=== PATIENT | female | born 1985 | race Caucasian/White ===

== ENCOUNTER → 2016-06-11 | Outpatient (CLI) | payer OTHER ==
[~2016-06-11] MED LIST: ACHD5005 PO; AGM875T PO; AMOX-355 PO; AMOX500C2 PO; CEPH500C PO; CYCL10TA9 PO; GNT.3OP5 OP; HYDR-3583 PO; HYDR1CAP2 PO; HYDR1TAB PO; IBP600T1 PO; NAPR-243 PO; PREN1TAB19 PO
--- NOTE | 2016-06-11 13:14 | Diagnostic Imaging Report ---
PROCEDURE: US OB SINGLE FETUS <14 WKS. TECHNIQUE: Multiple real-time grayscale images were obtained over the gravid uterus in various projections. INDICATION: OB ultrasound for dates. FINDINGS: There is a single live intrauterine fetus present. Emlyn-rump length is 5.2 cm consistent with 12 week 0 day gestation. heart rate of 160 beats per minute. Placenta is developing fundal and posterior. The left ovary measures 3.7 x 3.5 x 1.5 cm and appears normal. Right ovary is not demonstrated. There is no free fluid. IMPRESSION: 12 week 0 day live intrauterine with a sonographic EDC of 12/24/2016. Dictated by: Dictated on workstation # [id number]
== END ==
LOC: RAD 11:54
PROVIDERS: ATTEND Family Medicine
DX: Z34.80 Encounter for supervision of other normal pregnancy, unspecified trimester (principal); Z3A.12 12 weeks gestation of pregnancy
CPT/HCPCS: 76801

== ENCOUNTER 2016-07-03 19:07 | Emergency (ER) | payer SELFPAY ==
[~2016-07-03] VITALS: Ht 170.2 cm; Wt 77.1 kg
--- NOTE | 2016-07-03 19:20 | ED Abdominal Pain ---
General Stated Complaint: ABD PAIN AND NAUSEA - 15WKS Source of Information: Patient Exam Limitations: No Limitations History of Present Illness Time Seen By Provider: 19:19 Initial Comments To ER with right sided upper abdominal pain that has been intermittent x2 weeks and seems to be worsened by some foods. She is about 15 weeks gestation. States she does not have a family physician or an warehouse worker yet but she would like to see Dr. MONTANO. She believes this may be her gallbladder. She does have associated nausea and chills but no measured fevers or bowel changes. Timing/Duration: 1-2 Days Severity/Quality: Moderate Location: RUQ Radiation: No Radiation Activities at Onset: None Associated Symptoms: Fever/Chills, Nausea/Vomiting Allergies and Home Medications Allergies Coded Allergies: NKANo Known Allergies (Verified Allergy, Unknown, 11/02/05) Home Medications Ibuprofen 600 Mg Tab, 600 MG PO Q6H PRN for PAIN, #90 Ref 1 Prescribed by: MILA NEGRETE on 02/21/13 1424 Vit/Fe Fumarate/Fa 1 Each Tablet, 1 EACH PO DAILY, (Reported) Review of Systems Constitutional: see HPI, chills EENTM: No Symptoms Reported Respiratory: No Symptoms Reported Cardiovascular: See HPI Gastrointestinal: See HPI, Abdominal Pain, Denies Constipated, Denies Diarrhea , Nausea, Denies Vomiting Genitourinary: No Symptoms Reported Musculoskeletal: no symptoms reported Skin: no symptoms reported Psychiatric/Neurological: No Symptoms Reported Endocrine: No Symptoms Reported Past Qjryjjj-Ihbjmy-Clkira Hx Patient Social History Recent Foreign Travel: No Contact w/Someone Who Travel: No Immunizations Up To Date Tetanus Booster (TDap): Less than 5yrs Date of Influenza Vaccine: Nov 20, 2012 Surgeries HX Surgeries: No Respiratory Hx Respiratory Disorders: No Cardiovascular Hx Cardiac Disorders: No Neurological Hx Neurological Disorders: No Reproductive System Hx Reproductive Disorders: No Sexually Transmitted Disease: No HIV/AIDS: No Female Reproductive Disorders: Denies Genitourinary Hx Genitourinary Disorders: No Gastrointestinal Hx Gastrointestinal Disorders: No Musculoskeletal Hx Musculoskeletal Disorders: No Endocrine Hx Endocrine Disorders: No HEENT HX ENT Disorders: No Loss of Vision: Denies Hearing Impairment: Denies Cancer Hx Cancer: No Psychosocial Hx Psychiatric Problems: No Integumentary HX Skin/Integumentary Disorder: No Blood Transfusions Hx Blood Disorders: No Family Medical History Significant Family History: No Pertinent Family Hx Family Medial History: Family history: Cardiovascular disease (DVT Mom, triple bypass 2012) Family history: Hypertension Myocardial infarction Physical Exam Vital Signs VS - Last 72 Hours, by Label 07/03/16 19:20 Temp 98.2 Pulse 99 Resp 18 B/P (MAP) 125/58 Pulse Ox 100 O2 Delivery Room Air Capillary Refill : General Appearance: WD/WN, no apparent distress HEENT: PERRL/EOMI, normal ENT inspection Neck: non-tender, full range of motion Respiratory: no respiratory distress, no accessory muscle use Gastrointestinal: normal bowel sounds, non tender, soft Extremities: normal range of motion, non-tender Neurologic/Psychiatric: alert, normal mood/affect, oriented x 3 Skin: normal color, warm/dry Progress/Results/Core Measures Results/Orders Lab Results Laboratory Tests Test 07/03/16 19:20 07/03/16 19:24 Range/Units White Blood Count 14.1 H 4.3-11.0 10^3/uL Red Blood Count 4.25 L 4.35-5.85 10^6/uL Hemoglobin 13.3 11.5-16.0 G/DL Hematocrit 40 35-52 % Mean Corpuscular Volume 93 80-99 FL Mean Corpuscular Hemoglobin 31 25-34 PG Mean Corpuscular Hemoglobin Concent 34 32-36 G/DL Red Cell Distribution Width 12.8 10.0-14.5 % Platelet Count 226 130-400 10^3/uL Mean Platelet Volume 10.4 7.4-10.4 FL Neutrophils (%) (Auto) 85 H 42-75 % Lymphocytes (%) (Auto) 10 L 12-44 % Monocytes (%) (Auto) 4 0-12 % Eosinophils (%) (Auto) 1 0-10 % Basophils (%) (Auto) 0 0-10 % Neutrophils # (Auto) 12.0 H 1.8-7.8 X 10^3 Lymphocytes # (Auto) 1.5 1.0-4.0 X 10^3 Monocytes # (Auto) 0.5 0.0-1.0 X 10^3 Eosinophils # (Auto) 0.1 0.0-0.3 10^3/uL Basophils # (Auto) 0.0 0.0-0.1 10^3/uL Neutrophils % (Manual) 81 % Lymphocytes % (Manual) 17 % Monocytes % (Manual) 1 % Eosinophils % (Manual) 1 % Basophils % (Manual) 0 % Band Neutrophils 0 % Blood Morphology Comment NORMAL Sodium Level 136 135-145 MMOL/L Potassium Level 3.5 L 3.6-5.0 MMOL/L Chloride Level 105 98-107 MMOL/L Carbon Dioxide Level 23 21-32 MMOL/L Anion Gap 8 5-14 MMOL/L Blood Urea Nitrogen 5 L 7-18 MG/DL Creatinine 0.62 0.60-1.30 MG/DL Estimat Glomerular Filtration Rate > 60 BUN/Creatinine Ratio 8 Glucose Level 98 70-105 MG/DL Calcium Level 8.2 L 8.5-10.1 MG/DL Total Bilirubin 0.8 0.1-1.0 MG/DL Aspartate Amino Transf (AST/SGOT) 11 5-34 U/L Alanine Aminotransferase (ALT/SGPT) 10 0-55 U/L Alkaline Phosphatase 55 40-136 U/L Total Protein 6.6 6.4-8.2 G/DL Albumin 3.6 3.2-4.5 G/DL Lipase 19 8-78 U/L My Orders Orders - JUSTIN NORWOOD APRN Ua Culture If Indicated (07/03/16 19:12) Urine Bedside (07/03/16 19:12) Saline Lock/Iv-Start (07/03/16 19:12) Cbc With Automated Diff (07/03/16 19:12) Comprehensive Metabolic Panel (07/03/16 19:12) Manual Differential (07/03/16 19:20) Lipase (07/03/16 19:31) Ondansetron Injection (Zofran Injectio (07/03/16 19:45) Ns Iv 1000 Ml (Sodium Chloride 0.9%) (07/03/16 19:45) Diphenhydramine Injection (Benadryl Inje (07/03/16 19:45) Medications Given in ED Current Medications Medications Dose Ordered Sig/Rosalba Route Start Time Stop Time Status Last Admin Dose Admin Diphenhydramine HCl 12.5 mg ONCE ONCE IVP 07/03/16 19:45 07/03/16 19:46 DC 07/03/16 19:56 12.5 MG Ondansetron HCl 4 mg ONCE ONCE IVP 07/03/16 19:45 07/03/16 19:46 DC 07/03/16 19:56 4 MG Vital Signs/I&O Vital Sign - Last 12Hours 07/03/16 19:20 Temp 98.2 Pulse 99 Resp 18 B/P (MAP) 125/58 Pulse Ox 100 O2 Delivery Room Air Departure Impression Impression: Primary Impression: Nausea and vomiting Disposition: HOME, SELF-CARE Condition: Stable Departure-Patient Inst. Decision time for Depature: 20:01 Referrals: NO,LOCAL PHYSICIAN (PCP) Primary Care Physician CRISTAL REID MD (Family) Primary Care Physician Patient Instructions: No Instuctions Given Add. Discharge Instructions: 1. Follow-up with [facility] or Dr. MONTANO to further evaluate the cause of your right upper quadrant abdominal pain as this may warrant an ultrasound of the gallbladder. However, he will need to be without food or drink for 4 hours before that 2. Return to ER for any fevers, worsening pain, intolerable nausea and vomiting or other concerns JUSTIN NORWOOD APRN Jul 03, 2016 19:20
[2016-07-03 19:27] LABS: BASOPHILS % (AUTO) 0 % (0-10); EOSINOPHILS # (AUTO) 0.1 10^3/uL (0.0-0.3); EOSINOPHILS % (AUTO) 1 % (0-10); LYMPHOCYTES # (AUTO) 1.5 X 10^3 (1.0-4.0); LYMPHOCYTES % (AUTO) 10 % (12-44); MEAN CORPUSCULAR HEMOGLOBIN 31 PG (25-34); MEAN CORPUSCULAR HGB CONC 34 G/DL (32-36); MEAN CORPUSCULAR VOLUME 93 FL (80-99); MEAN PLATELET VOLUME 10.4 FL (7.4-10.4); MONOCYTES # (AUTO) 0.5 X 10^3 (0.0-1.0); MONOCYTES % (AUTO) 4 % (0-12); NEUTROPHILS % (AUTO) 85 % (42-75); PLATELET COUNT 226 10^3/uL (130-400); RED BLOOD COUNT 4.25 10^6/uL (4.35-5.85); RED CELL DISTRIBUTION WIDTH 12.8 % (10.0-14.5); WHITE BLOOD COUNT 14.1 10^3/uL (4.3-11.0)
[2016-07-03 19:44] LABS: BAND NEUTROPHILS 0 %; NEUTROPHILS % (MANUAL) 81 %
[2016-07-03 19:45] LABS: BASOPHILS % (MANUAL) 0 %; EOSINOPHILS % (MANUAL) 1 %; LYMPHOCYTES % (MANUAL) 17 %
[2016-07-03] MEDS ORDERED: NS IV 1000 ML 1,000 ML IV SCH (19:45)
[2016-07-03] MEDS ORDERED: ONDANSETRON 4 MG/2 ML (SDV) Z0FRAN IVP ONE (19:45)
[2016-07-03] MEDS ORDERED: diphenhydrAMINE 50 MG/ML INJ (BENADRYL) IVP ONE (19:45)
[2016-07-03 19:49] LABS: BILIRUBIN,URINE NEGATIVE (NEGATIVE); KETONES,URINE NEGATIVE (NEGATIVE); LEUKOCYTE ESTERASE ,URINE 1+ (NEGATIVE); NITRITE,URINE NEGATIVE (NEGATIVE); PH,URINE 6 (5-9); PROTEIN,URINE 1+ (NEGATIVE); UROBILINOGEN,URINE 1 MG/DL (NORMAL)
[2016-07-03 19:49] LABS: ALANINE AMINOTRANSFERASE 10 U/L (0-55); ALBUMIN 3.6 G/DL (3.2-4.5); ANION GAP 8 MMOL/L (5-14); ASPARTATE AMINO TRANSFERASE 11 U/L (5-34); BILIRUBIN,TOTAL 0.8 MG/DL (0.1-1.0); BLOOD UREA NITROGEN 5 MG/DL (7-18); BUN/CREATININE RATIO 8; CALCIUM 8.2 MG/DL (8.5-10.1); CARBON DIOXIDE 23 MMOL/L (21-32); CHLORIDE 105 MMOL/L (98-107); CREATININE SERUM 0.62 MG/DL (0.60-1.30); GFR ESTIMATED > 60; GLUCOSE 98 MG/DL (70-105); POTASSIUM 3.5 MMOL/L (3.6-5.0); SODIUM 136 MMOL/L (135-145); TOTAL PROTEIN 6.6 G/DL (6.4-8.2)
[2016-07-03 20:03] LABS: WBC,URINE 0-2 /HPF
[2016-07-03 20:21] VITALS: BP 125/58
== END 2016-07-03 20:21 | disposition home or self-care (01) ==
LOC: EDUNIT# 19:07 → ER 19:10
DX: O21.0 Mild hyperemesis gravidarum (principal); O26.892 Other specified pregnancy related conditions, second trimester; Z3A.15 15 weeks gestation of pregnancy
CPT/HCPCS: 36415; 80053; 81000; 83690; 84703; 85007; 85027; 96374; 96375

== ENCOUNTER → 2016-08-11 | Outpatient (CLI) | payer SELFPAY ==
--- NOTE | 2016-08-12 11:33 | Diagnostic Imaging Report ---
EXAM: OB ULTRASOUND COMPLETE DATE: August 11, 2016. COMPARISON: June 11, 2016. November 01, 2012. INDICATION: 31-year-old female, survey. FINDINGS: Multiple grayscale sonographic images were obtained of the gravid uterus. Overview: Within the uterus there is a single living gestation in variable position. There is positive movement and heart motion. heart rate was identified at 140 beats per minute. The amniotic fluid volume is subjectively normal. The placenta is posterior and without demonstrated previa. The cervical length is not measured. growth parameters are summarized in detail on the accompanying separate chart. The approximate mean gestational age by first ultrasound measurements is 20 weeks 5 days +/- 1 week variability. Estimated weight based on today's measurements is 409 g. anatomic survey: There is no ventriculomegaly (the lateral ventricle measures 5.6 mm) the cerebellum, cavum septum pellucidum, falx, and cisterna magna are identified. Longitudinal images of the spine appear unremarkable. Transverse images of the spine were not obtained. There is visualization of the stomach, kidneys and urinary bladder. There is a nondiagnostic four-chamber view of the heart. There appears to be a two-vessel umbilical cord. The abdominal wall cord insertion is not well demonstrated. There are no images demonstrating four extremities. The upper lip is not imaged. IMPRESSION: 1. Single living intrauterine with approximate mean gestational age of 20 weeks 5 days +/- 1 week. 2. There does appear to be a two-vessel umbilical cord. Significant limitations of the survey as described above without demonstrated additional abnormality. Dictated by: Dictated on workstation # [id number]
== END ==
LOC: RAD 16:30
PROVIDERS: ATTEND Obstetrics & Gynecology
DX: Z34.82 Encounter for supervision of other normal pregnancy, second trimester (principal)
CPT/HCPCS: 76805

== ENCOUNTER 2016-12-12 19:00 | Inpatient (IN) | payer MEDICAID ==
[~2016-12-12] VITALS: Ht 170.2 cm; Wt 87.7 kg
[2016-12-12] MEDS ORDERED: LACTATED RINGERS 1,000 ML IV SCH (19:25)
[2016-12-12 19:30] VITALS: BP 121/65
[2016-12-12] MEDS ORDERED: MISOPROSTOL 100 MCG (CYTOTEC) TAB PO ONE (19:30)
[2016-12-12] MEDS ORDERED: MINERAL OIL CONCENTRATE 99.9% 15 ML UDC TOP PRN (19:30)
[2016-12-12] MEDS ORDERED: HYDROmorphone (DILAUDID) 2 MG/ML VIAL IVP PRN (19:30)
[2016-12-12 20:29] LABS: BASOPHILS % (AUTO) 0 % (0-10); EOSINOPHILS # (AUTO) 0.2 10^3/uL (0.0-0.3); EOSINOPHILS % (AUTO) 1 % (0-10); LYMPHOCYTES % (AUTO) 14 % (12-44); MEAN CORPUSCULAR HEMOGLOBIN 31 PG (25-34); MEAN CORPUSCULAR HGB CONC 33 G/DL (32-36); MEAN CORPUSCULAR VOLUME 95 FL (80-99); MONOCYTES # (AUTO) 1.2 X 10^3 (0.0-1.0); MONOCYTES % (AUTO) 6 % (0-12); NEUTROPHILS # (AUTO) 16.4 X 10^3 (1.8-7.8); NEUTROPHILS % (AUTO) 79 % (42-75); PLATELET COUNT 242 10^3/uL (130-400); RED BLOOD COUNT 3.63 10^6/uL (4.35-5.85); RED CELL DISTRIBUTION WIDTH 13.1 % (10.0-14.5); WHITE BLOOD COUNT 20.8 10^3/uL (4.3-11.0)
[2016-12-12] MEDS: D5 LR IV SOLUTION 1,000 ML IV SCH (20:58)
[2016-12-12 20:59] LABS: BAND NEUTROPHILS 2 %; BASOPHILS % (MANUAL) 0 %; EOSINOPHILS % (MANUAL) 0 %; LYMPHOCYTES % (MANUAL) 18 %; NEUTROPHILS % (MANUAL) 72 %; REACTIVE LYMPHOCYTES 2 %
[2016-12-12 21:22] LABS: BILIRUBIN,URINE NEGATIVE (NEGATIVE); KETONES,URINE NEGATIVE (NEGATIVE); LEUKOCYTE ESTERASE ,URINE 2+ (NEGATIVE); NITRITE,URINE NEGATIVE (NEGATIVE); PH,URINE 6.5 (5-9); PROTEIN,URINE 2+ (NEGATIVE); UROBILINOGEN,URINE 4 MG/DL (NORMAL)
[2016-12-12 21:30] VITALS: BP 122/72
[2016-12-12 21:39] LABS: SQUAMOUS EPITHELIAL CELL,UR >50 /HPF
[2016-12-12] MEDS ORDERED: CATHETER FLUSH 10 ML SYR IV SCH (22:00)
[2016-12-12 22:30] VITALS: BP 122/72
[2016-12-12 23:30] VITALS: BP 114/59
[2016-12-13] VITALS (59 sets, daily range): BP systolic 98–148; BP diastolic 53–84
[2016-12-13] MEDS: MISOPROSTOL 100 MCG (CYTOTEC) TAB PO SCH ×2 (01:09→03:14)
[2016-12-13] MEDS ORDERED: SUFENTA 0.6MCG/ML BUPIVA 0.125 100 ML ONE (02:02)
[2016-12-13] MEDS ORDERED: fentaNYL INJECTION 100 MCG/2 ML AMP ONE (03:51)
[2016-12-13] MEDS: D5 LR IV SOLUTION 1,000 ML IV SCH ×2 (04:06→08:36)
[2016-12-13] MEDS ORDERED: LACTATED RINGERS 1,000 ML IV ONE (04:12)
[2016-12-13] MEDS ORDERED: diphenhydrAMINE 50 MG/ML INJ (BENADRYL) IV PRN (04:15)
[2016-12-13] MEDS ORDERED: ONDANSETRON 4 MG/2 ML (SDV) Z0FRAN IV PRN (04:15)
[2016-12-13] MEDS ORDERED: NALOXONE 0.4 MG/ML 1 ML (NARCAN) VIAL IV PRN ×2 (04:15)
[2016-12-13] MEDS ORDERED: METOCLOPRAMIDE INJ 10 MG/2 ML (REGLAN) IV PRN (04:15)
[2016-12-13] MEDS ORDERED: EPIDURAL (SUFENTA 0.6MCG/ML BUPIVA 0.125%) 100 ML BAG EPI PRN (04:15)
[2016-12-13] MEDS ORDERED: INFLUENZA TRIvalent 2017-2018 0.5 ML/45 MCG SYR IM ONE (07:45)
--- NOTE | 2016-12-13 08:46 | History & Physical-OB ---
OB - Chief Complaint & HPI Date/Time Date of Admission: Date of Admission: Dec 12, 2016 at 7:00 pm Time Seen by Provider: 08:15 Chief Complaint/History OB-Reason for Admission/Chief: Induction of Labor Hx : 4 Hx Para: 3 Expected Date of Delivery: Dec 24, 2016 Gestational Age in Weeks: 38 Gestational Age in Days: 3 Indication for induction: other (2 vessel cord, suspicion for placental insufficency) Admission Nurse Assessment Rev: Yes History of Labs A neg Antibody neg RI RPR NR HBsAg NR HIV NR GC neg GBS neg Allergies and Home Medications Allergies Coded Allergies: NKANo Known Allergies (Verified Allergy, Unknown, 11/02/05) Home Medications Ibuprofen 600 Mg Tab, 600 MG PO Q6H PRN for PAIN, #90 Ref 1 Prescribed by: MILA NEGRETE on 02/21/13 1424 Vit/Fe Fumarate/Fa 1 Each Tablet, 1 EACH PO DAILY, (Reported) OB - History Hx of Present Care: Yes Ultrasounds: Abnormal US findings (2 vessel cord) Obstetrical Complications: None Medical Complications: None Obstetrical History Hx Termination: No Hx Multiple Gestation: No Hx Stillbirth: No Hx Complication: No Hx Induced Hypertens: No Hx Maternal Gestational Diabet: No Delivery History Hx Dystocia: No Hx Large For Gestational Age I: No Hx Small for Gestational Age I: No Hx Section: No Hx Vaginal Delivery Post C-Sec: No Hx Blood Disorders: No Adverse Rxn to Tranfusion: No Patient Past Medical History n/a Social History/Family History HIV/AIDS: No Recent Infectious Disease Expo: No Sexually Transmitted Disease: No Alcohol Use: Denies Use Recreational Drug Use: No 2nd Hand Smoke Exposure: Yes Immunizations Tetanus Booster (TDap): Less than 5yrs Date of Influenza Vaccine: Nov 20, 2012 OB - Admission Exam Physical Exam Date Seen by Provider: Dec 13, 2016 Time Seen by Provider: 08:20 Vitals: Vital Signs 12/13/16 12/13/16 12/13/16 03:58 06:45 07:00 Temp 97.6 Pulse 58 Resp 18 B/P (MAP) 125/76 Pulse Ox 100 O2 Delivery Room Air O2 Flow Rate 15.00 HEENT: NCAT Heart: Rhythm Normal Lungs: Clear Abdomen: Gravid Extremities: Normal Reflexes: Normal Cervical Dilatation: 2cm Effacement: 50% Station: -2 Membranes: Intact Heart Rate: 130's Accelerations: Accelerations Present Decelerations: No Decelerations Short Term Variability: Present Wedger And Gluer Variability: Average (6-25) Contractions on Admission: 6-10 Minutes Apart Intensity: Mild Valente Scoring Tool (Modified) Dilation (cm): 1-2cm (1) Effacement (%): 51-79% (2) Descent/Station: -2 (1) Cervix Consistency: Soft (2) Cervix Position: Middle/Mid-Position (1) Add 1 point for: Each previous vaginal delivery (1) Valente Score: 10 Labs Laboratory Tests Test 12/12/16 20:18 12/12/16 21:10 Range/Units White Blood Count 20.8 H 4.3-11.0 10^3/uL Red Blood Count 3.63 L 4.35-5.85 10^6/uL Hemoglobin 11.4 L 11.5-16.0 G/DL Hematocrit 34 L 35-52 % Mean Corpuscular Volume 95 80-99 FL Mean Corpuscular Hemoglobin 31 25-34 PG Mean Corpuscular Hemoglobin Concent 33 32-36 G/DL Red Cell Distribution Width 13.1 10.0-14.5 % Platelet Count 242 130-400 10^3/uL Mean Platelet Volume 11.0 H 7.4-10.4 FL Neutrophils (%) (Auto) 79 H 42-75 % Lymphocytes (%) (Auto) 14 12-44 % Monocytes (%) (Auto) 6 0-12 % Eosinophils (%) (Auto) 1 0-10 % Basophils (%) (Auto) 0 0-10 % Neutrophils # (Auto) 16.4 H 1.8-7.8 X 10^3 Lymphocytes # (Auto) 3.0 1.0-4.0 X 10^3 Monocytes # (Auto) 1.2 H 0.0-1.0 X 10^3 Eosinophils # (Auto) 0.2 0.0-0.3 10^3/uL Basophils # (Auto) 0.0 0.0-0.1 10^3/uL Neutrophils % (Manual) 72 % Lymphocytes % (Manual) 18 % Monocytes % (Manual) 6 % Eosinophils % (Manual) 0 % Basophils % (Manual) 0 % Band Neutrophils 2 % Reactive Lymphocytes 2 % Smudge Cells SLIGHT Toxic Granulation 2+ Blood Morphology Comment NORMAL Urine Color YELLOW Urine Clarity SLIGHTLY CLOUDY Urine pH 6.5 5-9 Urine Specific [place] 1.020 1.016-1.022 Urine Protein 2+ H NEGATIVE Urine Glucose (UA) NEGATIVE NEGATIVE Urine Ketones NEGATIVE NEGATIVE Urine Nitrite NEGATIVE NEGATIVE Urine Bilirubin NEGATIVE NEGATIVE Urine Urobilinogen 4 H NORMAL MG/DL Urine Leukocyte Esterase 2+ H NEGATIVE Urine RBC (Auto) 3+ H NEGATIVE Urine RBC 0-2 /HPF Urine WBC 5-10 H /HPF Urine Squamous Epithelial Cells >50 H /HPF Urine Renal Epithelial Cells NONE /HPF Urine Crystals NONE /LPF Urine Bacteria TRACE /HPF Urine Casts NONE /LPF Urine Mucus SMALL H /LPF Urine Culture Indicated YES OB - Assessment/Plan/Diagnosis Assessment Assessment: induction of labor Plan Plan: Induction Induction Method: per Misoprostol Protocol Discharge Diagnosis Diagnosis: 31 yo @ 38.3 2 vessel cord Suspicion for placental insufficency GBS neg ROMELIA MONTANO DO Dec 13, 2016 8:46 am
[2016-12-13] MEDS ORDERED: OXYTOCIN/NORMAL SALINE 500 ML IV ONE (12:33)
[2016-12-13] MEDS ORDERED: OXYTOCIN/NORMAL SALINE 500 ML IV SCH (13:57)
[2016-12-13] MEDS ORDERED: BENZOCAINE/MENTHOL (DERMOPLAST) 56 ML CAN TP PRN (14:00)
[2016-12-13] MEDS ORDERED: TETANUS,DIPTH,PERTUSS P/F (BOOSTRIX) 0.5 ML VIAL IM ONE (14:00)
[2016-12-13] MEDS ORDERED: DIBUCAINE (NUPERCAINAL) 1% OINT 30 GM TOP PRN (14:00)
[2016-12-13] MEDS ORDERED: MEASLES,MUMPS,RUBELLA 1 EA INJ SQ ONE (14:00)
[2016-12-13] MEDS ORDERED: WITCH HAZEL(TUCKS) 40 EA JAR TOP PRN (14:00)
--- NOTE | 2016-12-13 14:02 | OB Labor & Delivery Record ---
L&D History Date of Service Date of Service: Dec 13, 2016 History Expected Date of Delivery: Dec 24, 2016 Gestational Age in Weeks: 38 Hx : 4 Hx Para: 3 Complications Events: Routine care (2 vessel cord) Operative Indications (Cesarea: N/A-Vaginal Delivery Intrapartal Events: None L&D Stage1 Stage One Onset of Labor - Date: Dec 13, 2016 Monitors and Tracing Monitor Mode: External Heart Rate: 120 Monitor Decelerations: Variable Station: 0 Melter Caster Variability: Average (6-10) Short Term Variability: Present Presentation: Vertex Vital Signs VS - Last 72 Hours, by Label 12/12/16 12/12/16 12/12/16 12/12/16 19:30 21:30 22:30 23:30 Temp 98.0 Pulse 94 80 77 78 Resp 18 18 18 18 B/P (MAP) 121/65 122/72 122/72 114/59 O2 Delivery Room Air Room Air Room Air Room Air 12/13/16 12/13/16 12/13/16 12/13/16 01:00 01:30 02:30 03:30 Temp 97.7 Pulse 72 66 76 Resp 18 18 18 18 B/P (MAP) 115/66 109/56 123/70 O2 Delivery Room Air Room Air Room Air Room Air 12/13/16 12/13/16 12/13/16 12/13/16 03:40 03:45 03:50 03:58 Temp 97.6 Pulse 66 62 71 78 Resp 18 18 18 18 B/P (MAP) 127/63 120/59 119/60 106/54 Pulse Ox 99 99 98 99 O2 Delivery Room Air Room Air Room Air Room Air 12/13/16 12/13/16 12/13/16 12/13/16 04:00 04:03 04:06 04:09 Pulse 73 74 68 88 Resp 18 18 18 18 B/P (MAP) 106/56 110/70 118/58 119/59 Pulse Ox 99 100 100 99 O2 Delivery Room Air Room Air Room Air Room Air 12/13/16 12/13/16 12/13/16 12/13/16 04:12 04:15 04:25 04:30 Pulse 69 71 58 64 Resp 18 18 18 18 B/P (MAP) 118/58 124/62 127/60 128/59 Pulse Ox 99 99 99 99 O2 Delivery Room Air Room Air Room Air Room Air 12/13/16 12/13/16 12/13/16 12/13/16 04:35 04:40 04:45 04:50 Pulse 63 61 62 59 Resp 18 18 18 18 B/P (MAP) 115/55 117/63 109/63 109/64 Pulse Ox 99 99 98 99 O2 Delivery Room Air Room Air Room Air Room Air 12/13/16 12/13/16 12/13/16 12/13/16 05:10 05:15 05:30 05:45 Pulse 50 50 55 60 Resp 18 18 18 18 B/P (MAP) 114/57 114/57 111/56 128/69 Pulse Ox 96 97 97 97 O2 Delivery Room Air Room Air Room Air Room Air 12/13/16 12/13/16 12/13/16 12/13/16 06:00 06:15 06:30 06:45 Pulse 54 60 93 58 Resp 18 18 18 18 B/P (MAP) 116/66 106/55 148/84 124/68 Pulse Ox 100 99 100 100 O2 Delivery Room Air Room Air Room Air Non Rebreather O2 Flow Rate 15.00 12/13/16 12/13/16 12/13/16 12/13/16 07:00 07:23 07:35 07:55 Temp 97.7 Pulse 58 62 64 64 Resp 18 18 18 20 B/P (MAP) 125/76 115/59 114/61 119/64 Pulse Ox 100 100 99 99 O2 Delivery Room Air Room Air Room Air Room Air 12/13/16 12/13/16 12/13/16 12/13/16 08:10 08:25 08:40 08:55 Pulse 64 64 71 68 Resp 20 20 18 18 B/P (MAP) 120/67 120/67 114/65 114/60 Pulse Ox 99 99 100 100 O2 Delivery Room Air Room Air Room Air Room Air 12/13/16 12/13/16 12/13/16 12/13/16 09:10 09:25 09:40 09:55 Pulse 62 62 65 76 Resp 18 20 20 18 B/P (MAP) 111/59 110/57 115/60 111/66 Pulse Ox 100 100 100 99 O2 Delivery Room Air Room Air Room Air Room Air 12/13/16 12/13/16 12/13/16 12/13/16 10:10 10:25 10:40 10:55 Pulse 72 71 67 67 Resp 18 18 18 18 B/P (MAP) 122/78 124/71 111/62 111/62 Pulse Ox 99 100 100 100 O2 Delivery Room Air Room Air Room Air Room Air 12/13/16 12/13/16 11:10 11:35 Pulse 67 61 Resp 18 18 B/P (MAP) 124/70 116/69 Pulse Ox 100 100 O2 Delivery Room Air Room Air Rupture of Membranes Spontaneous Ruture of Membrane: No Amniotic Membrane Rupture Time: 0816 Amniotic Membrane Fluid Desc.: Clear Vaginal Bleeding Description: Normal Show Induction/Anesthesia Epidural Cath Placement - Time: 347 L&D Stage2 Stage Two Stage II Date: Dec 13, 2016 Monitors and Tracing Monitor Mode: External Heart Rate: 120 Monitor Accelerations: Uniform Monitor Decelerations: Variable Snf Variability: Average (6-10) Short Term Variability: Present Position: Right Occiput Anterior Presentation: Vertex Cord Descript/Complications Cord Vessel Description: 3 Vessels Delivery Type Delivery Method: Spontaneous Vaginal Episiotomy/Perineal Laceration Laceraction(s)/Extensions: No Condition of Delivery 1 minute Comment: 8 5 minute Comment: 9 Notes live female infant 6lbs 1 oz Condition of Infant Condition of : Living Exam: No Observed Abnormalities Resuscitation Resuscitation: N/A - Spontaneous Resp L&D Stage3 Stage Three Stage III Date: Dec 13, 2016 Pictocin Pitocin Administration Comment: 30 mu wide open started at delivery of the placenta Placenta Delivery Placenta Delivery: Spontaneous Delivery Summary Summary blood loss >1000ml: No Vaginal blood loss >500ml: No 200 Attending at delivery: Romelia Montano DO Condition of Delivery Examined: Cervix Examined, Uterus Explored Post Hemorrhage: No Condition of Mother stable Condition of Infant (s) stable ROMELIA MONTANO DO Dec 13, 2016 14:02
[2016-12-13] MEDS: IBUPROFEN 600 MG (MOTRIN) TAB PO SCH ×2 (16:11→22:04)
[2016-12-13] MEDS: DOCUSATE SODIUM 100 MG (COLACE) CAP PO SCH (22:04)
[2016-12-13] MEDS: APAP 300 MG/CODEINE 30 MG (TYLENOL #3) TAB PO PRN (22:05)
[2016-12-14 02:15] VITALS: BP 112/68
[2016-12-14] MEDS: APAP 300 MG/CODEINE 30 MG (TYLENOL #3) TAB PO PRN (02:19)
[2016-12-14] MEDS: IBUPROFEN 600 MG (MOTRIN) TAB PO SCH ×4 (04:02→20:16)
[2016-12-14 05:34] VITALS: BP 98/65
[2016-12-14 05:36] LABS: BASOPHILS % (AUTO) 0 % (0-10); EOSINOPHILS # (AUTO) 0.3 10^3/uL (0.0-0.3); EOSINOPHILS % (AUTO) 1 % (0-10); LYMPHOCYTES # (AUTO) 4.4 X 10^3 (1.0-4.0); LYMPHOCYTES % (AUTO) 20 % (12-44); MEAN CORPUSCULAR HEMOGLOBIN 31 PG (25-34); MEAN CORPUSCULAR HGB CONC 32 G/DL (32-36); MEAN CORPUSCULAR VOLUME 96 FL (80-99); MEAN PLATELET VOLUME 11.3 FL (7.4-10.4); MONOCYTES # (AUTO) 1.3 X 10^3 (0.0-1.0); MONOCYTES % (AUTO) 6 % (0-12); NEUTROPHILS # (AUTO) 16.5 X 10^3 (1.8-7.8); NEUTROPHILS % (AUTO) 73 % (42-75); PLATELET COUNT 205 10^3/uL (130-400); RED BLOOD COUNT 3.53 10^6/uL (4.35-5.85); RED CELL DISTRIBUTION WIDTH 13.3 % (10.0-14.5); WHITE BLOOD COUNT 22.5 10^3/uL (4.3-11.0)
[2016-12-14 08:00] VITALS: BP 81/48
[2016-12-14] MEDS: PRENATAL VITAMIN 1 EA TAB PO SCH (08:12)
[2016-12-14] MEDS: FERROUS SULF 325 MG (IRON) TAB PO SCH (08:12)
--- NOTE | 2016-12-14 08:38 | Progress Note-Standard ---
Standard Progress Note Progress Notes/Assess & Plan Date Seen by Provider: Dec 14, 2016 Time Seen by Provider: 08:35 Progress/Assessment & Plan Patient doing well no concerns voiced. Lochia moderate mod to light. Pain well controlled. Vital Sign - Last 24 Hours 12/13/16 12/13/16 12/13/16 12/13/16 08:40 08:55 09:10 09:25 Pulse 71 68 62 62 Resp 18 18 18 20 B/P (MAP) 114/65 114/60 111/59 110/57 Pulse Ox 100 100 100 100 O2 Delivery Room Air Room Air Room Air Room Air 12/13/16 12/13/16 12/13/16 12/13/16 09:40 09:55 10:10 10:25 Pulse 65 76 72 71 Resp 20 18 18 18 B/P (MAP) 115/60 111/66 122/78 124/71 Pulse Ox 100 99 99 100 O2 Delivery Room Air Room Air Room Air Room Air 12/13/16 12/13/16 12/13/16 12/13/16 10:40 10:55 11:10 11:35 Pulse 67 67 67 61 Resp 18 18 18 18 B/P (MAP) 111/62 111/62 124/70 116/69 Pulse Ox 100 100 100 100 O2 Delivery Room Air Room Air Room Air Room Air 12/13/16 12/13/16 12/13/16 12/13/16 11:50 12:05 12:20 12:35 Pulse 70 79 71 86 Resp 18 20 20 18 B/P (MAP) 119/68 129/78 129/73 142/78 Pulse Ox 100 100 100 100 O2 Delivery Room Air Room Air Room Air Room Air 12/13/16 12/13/16 12/13/16 12/13/16 12:50 13:06 13:21 13:35 Temp 98.4 97.8 97.4 97.6 Pulse 76 73 75 65 Resp 18 18 18 18 B/P (MAP) 121/53 119/62 108/59 101/59 Pulse Ox 100 100 100 100 O2 Delivery Room Air Room Air Room Air Room Air 12/13/16 12/13/16 12/13/16 12/13/16 13:50 14:05 14:20 14:35 Temp 97.2 Pulse 82 84 74 69 Resp 18 18 18 18 B/P (MAP) 104/65 114/71 104/57 102/56 Pulse Ox 100 100 100 100 O2 Delivery Room Air Room Air Room Air Room Air 12/13/16 12/13/16 12/14/16 12/14/16 17:25 21:50 02:15 05:34 Temp 97.9 97.8 98.0 98.0 Pulse 57 67 60 58 Resp 18 18 18 18 B/P (MAP) 98/57 107/63 112/68 98/65 Pulse Ox 100 98 97 100 O2 Delivery Room Air Room Air Room Air Room Air Intake and Output 12/14/16 12/14/16 12/15/16 15:00 23:00 07:00 Intake Total 100 ml Balance 100 ml Uterine fundus firm and palpated below umbilicus Laboratory Tests Test 12/14/16 05:30 Range/Units White Blood Count 22.5 H 4.3-11.0 10^3/uL Red Blood Count 3.53 L 4.35-5.85 10^6/uL Hemoglobin 11.0 L 11.5-16.0 G/DL Hematocrit 34 L 35-52 % Mean Corpuscular Volume 96 80-99 FL Mean Corpuscular Hemoglobin 31 25-34 PG Mean Corpuscular Hemoglobin Concent 32 32-36 G/DL Red Cell Distribution Width 13.3 10.0-14.5 % Platelet Count 205 130-400 10^3/uL Mean Platelet Volume 11.3 H 7.4-10.4 FL Neutrophils (%) (Auto) 73 42-75 % Lymphocytes (%) (Auto) 20 12-44 % Monocytes (%) (Auto) 6 0-12 % Eosinophils (%) (Auto) 1 0-10 % Basophils (%) (Auto) 0 0-10 % Neutrophils # (Auto) 16.5 H 1.8-7.8 X 10^3 Lymphocytes # (Auto) 4.4 H 1.0-4.0 X 10^3 Monocytes # (Auto) 1.3 H 0.0-1.0 X 10^3 Eosinophils # (Auto) 0.3 0.0-0.3 10^3/uL Basophils # (Auto) 0.0 0.0-0.1 10^3/uL Diagnosis: PPD 1 NVD P: Continue routine PP care Will consider discharge later today pending infant release. ROMELIA MONTANO DO Dec 14, 2016 8:38 am
--- NOTE | 2016-12-14 08:39 | Discharge Inst-Women's Service ---
Discharge Inst-Women's Serv Depart Medication/Instructions New, Converted or Re-Newed RX: RX on Chart Consults/Follow Up Additional Follow Up: Yes Orders/Referrals Dr. Montano in 6 weeks Activity Activity: Activity as Tolerated Driving Instructions: No Driving for 1 Week NO SMOKING: NO SMOKING Nothing Inside Vagina: No Douching, No Purdin, No Tampons Diet Discharge Diet: No Restrictions Symptoms to Report to : Bleeding Excessive, Pain Increased, Fever Over 101 Degrees F, Vaginal Bleeding Increase, Questions/Concerns For Any Problems or Questions: Contact Your Physician Skin/Wound Care Bathing Instructions: Shower (x 2 weeks) ROMELIA MONTANO DO Dec 14, 2016 8:39 am
[2016-12-14] MEDS ORDERED: IBUP-1773 PO (08:40)
[2016-12-14] MEDS ORDERED: DOCU100C37 PO (08:40)
[2016-12-14] MEDS ORDERED: ACET1TAB43 PO (08:40)
[2016-12-14 09:27] VITALS: BP 81/48
[2016-12-14] MEDS: DOCUSATE SODIUM 100 MG (COLACE) CAP PO SCH ×2 (11:41→21:22)
[2016-12-14 12:00] VITALS: BP 132/70
--- NOTE | 2016-12-14 15:52 | Anesthesia-Regional Post-Op ---
Regional Patient Condition Mental Status: Alert, Oriented x3 Circulation: Same as Pre-Op Headache: Absent Sensation: Decreased (left leg slightly numb) Motor Block: Absent Post Op Complications Complications Left leg slightly numb Follow Up Care/Instructions Patient Instructions Follow up tomorrow. Anesthesia/Patient Condition Patient is doing well, no complaints, stable vital signs, no apparent adverse anesthesia problems. No complications reported per nursing. TRIPP MORRIS CRNA Dec 14, 2016 15:52
[2016-12-14 16:00] VITALS: BP 101/60
[2016-12-14] MEDS: CATHETER FLUSH 10 ML SYR IV SCH (23:21)
[2016-12-15] VITALS: BP 120/73
[2016-12-15] MEDS: IBUPROFEN 600 MG (MOTRIN) TAB PO SCH ×3 (02:29→18:05)
[2016-12-15] MEDS: PRENATAL VITAMIN 1 EA TAB PO SCH (06:32)
[2016-12-15] MEDS: CATHETER FLUSH 10 ML SYR IV SCH (06:38)
[2016-12-15] MEDS: DOCUSATE SODIUM 100 MG (COLACE) CAP PO SCH (08:30)
[2016-12-15] MEDS: FERROUS SULF 325 MG (IRON) TAB PO SCH (08:30)
--- NOTE | 2016-12-15 14:14 | Anesthesia-Regional Post-Op ---
Regional Patient Condition Mental Status: Alert, Oriented x3 Circulation: Same as Pre-Op Headache: Absent Sensation: Decreased Motor Block: Absent Post Op Complications Complications Pt continues to report leg "feels asleep" and feels swollen. WNL upon assessment. Will continue to follow up. Follow Up Care/Instructions Patient Instructions None needed. Anesthesia/Patient Condition Patient is doing well, no complaints, stable vital signs, no apparent adverse anesthesia problems. No complications reported per nursing. WARREN OVALLE CRNA Dec 15, 2016 14:14
[2016-12-15] MEDS ORDERED: INFLUENZA TRIvalent 2017-2018 0.5 ML/45 MCG SYR IM ONE (17:54)
== END 2016-12-15 18:15 | disposition home or self-care (01) | DRG 775 ==
LOC: LDRP 19:00
PROVIDERS: ADMIT Obstetrics & Gynecology; ATTEND Obstetrics & Gynecology
PROC: 10E0XZZ Delivery of Products of Conception, External Approach (ICD-10-PCS; principal; 2016-12-13)
DX: Z3A.38 38 weeks gestation of pregnancy; Z23 Encounter for immunization; Z37.0 Single live birth; O69.89X0 Labor and delivery complicated by other cord complications, not applicable or unspecified
CPT/HCPCS: 36415; 81000; 83033; 85007; 85025; 85027; 86850; 86900; 86901; 87088

== ENCOUNTER 2019-08-20 20:50 | Emergency (ER) | payer SELFPAY ==
[~2019-08-20] VITALS: Ht 170 cm; Wt 36.6 kg
[~2019-08-20 20:50] MED LIST changes: +ACET1TAB43 PO; +DOCU100C37 PO; +IBUP-1773 PO
[2019-08-20 21:22] LABS: BASOPHILS % (AUTO) 0 % (0-10); EOSINOPHILS # (AUTO) 0.1 10^3/uL (0.0-0.3); EOSINOPHILS % (AUTO) 0 % (0-10); HEMATOCRIT 38 % (35-52); HEMOGLOBIN 13.1 G/DL (11.5-16.0); LYMPHOCYTES # (AUTO) 3.3 X 10^3 (1.0-4.0); LYMPHOCYTES % (AUTO) 17 % (12-44); MEAN CORPUSCULAR HEMOGLOBIN 33 PG (25-34); MEAN CORPUSCULAR HGB CONC 35 G/DL (32-36); MEAN CORPUSCULAR VOLUME 97 FL (80-99); MEAN PLATELET VOLUME 10.9 FL (7.4-10.4); MONOCYTES # (AUTO) 0.8 X 10^3 (0.0-1.0); MONOCYTES % (AUTO) 4 % (0-12); NEUTROPHILS # (AUTO) 15.2 X 10^3 (1.8-7.8); NEUTROPHILS % (AUTO) 78 % (42-75); PLATELET COUNT 215 10^3/uL (130-400); RED CELL DISTRIBUTION WIDTH 12.5 % (10.0-14.5); WHITE BLOOD COUNT 19.5 10^3/uL (4.3-11.0)
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
[2019-08-20 21:35] LABS: ALANINE AMINOTRANSFERASE 16 U/L (0-55); ALBUMIN 4.3 GM/DL (3.2-4.5); ALKALINE PHOSPHATASE 40 U/L (40-136); BILIRUBIN,TOTAL 0.8 MG/DL (0.1-1.0); BUN/CREATININE RATIO 9; CARBON DIOXIDE 18 MMOL/L (21-32); CHLORIDE 107 MMOL/L (98-107); CREATININE SERUM 0.65 MG/DL (0.60-1.30); GFR ESTIMATED > 60; GLUCOSE 94 MG/DL (70-105); POTASSIUM 3.5 MMOL/L (3.6-5.0); SODIUM 137 MMOL/L (135-145); TOTAL PROTEIN 7.6 GM/DL (6.4-8.2)
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
[2019-08-20] MEDS ORDERED: ACETAMINOPHEN 500 MG TAB (TYLENOL) PO ONE (22:00)
[2019-08-20] MEDS ORDERED: IBUPROFEN 800 MG (MOTRIN) TAB PO ONE (22:00)
[2019-08-20 22:12] LABS: LYMPHOCYTES % (MANUAL) 17 %; MONOCYTES % (MANUAL) 2 %; NEUTROPHILS % (MANUAL) 81 %
[2019-08-20 22:13] LABS: RBC MORPH NORMAL
[2019-08-20] MEDS ORDERED: HYDR-3870 PO (22:24)
[2019-08-20] MEDS ORDERED: RX-HYDROCODONE/APAP 5/325 MG #4 TAB PK PO PRN (22:30)
[2019-08-20 22:35] VITALS: BP 129/74
== END 2019-08-20 22:40 | disposition home or self-care (01) ==
LOC: EDUNIT# 20:50 → ER 20:51
DX: S01.112A Laceration without foreign body of left eyelid and periocular area, initial encounter (principal); S40.812A Abrasion of left upper arm, initial encounter; S40.212A Abrasion of left shoulder, initial encounter; S80.212A Abrasion, left knee, initial encounter; R40.2142 Coma scale, eyes open, spontaneous, at arrival to emergency department; R40.2252 Coma scale, best verbal response, oriented, at arrival to emergency department; R40.2362 Coma scale, best motor response, obeys commands, at arrival to emergency department; Z77.22 Contact with and (suspected) exposure to environmental tobacco smoke (acute) (chronic); Z82.49 Family history of ischemic heart disease and other diseases of the circulatory system; Z32.01 Encounter for pregnancy test, result positive; V28.5XXA Motorcycle passenger injured in noncollision transport accident in traffic accident, initial encounter
CPT/HCPCS: 36415; 70450; 71045; 72125; 80053; 84703; 85007; 85027